=== PATIENT | male | born 1995 | race Caucasian/White ===

== ENCOUNTER 2018-04-05 04:07 | Emergency (ER) | payer BC, OTHER ==
[2018-04-05] MEDS ORDERED: IPRATROPIUM/ALBUTEROL 3 ML DEYVIAL ONE (04:14)
--- NOTE | 2018-04-05 04:20 | EDPHY ---
H & P Stated Complaint: ASTHMA EXAC Time Seen by Provider: 04/05/18 04:14 HPI/ROS: Chief Complaint: Asthma exacerbation HPI: 23-year-old male with a history of asthma has been off of his Symbicort and albuterol for the last 2 weeks since his prescriptions ran out. He has been having increasing wheezing and shortness of breath. No recent illness. No fevers or chills. Mild dry nonproductive cough. No nausea or vomiting. No chest pain. ROS: 10 systems were reviewed and were negative except those elements noted in the HPI. PMH: Asthma Social History: No smoking, no alcohol, no recreational drug use Family History: non-contributory Physical Exam: Gen: Awake, Alert, No Distress HEENT: Nose: no rhinorrhea Eyes: PERRLA, EOMI Mouth: Moist mucosa Neck: Supple, no JVD Chest: nontender, diffuse expiratory wheeze, no focal rales or rhonchi Heart: S1, S2 normal, no murmur Abd: Soft, non-tender, no guarding Back: no CVA tenderness, no midline tenderness Ext: no edema, non-tender Skin: no rash Neuro: CN II-XII intact, Sensation grossly intact, Strength 5/5 in bilateral upper and lower extremities - Personal History Current Tetanus Diphtheria and Acellular Pertussis (TDAP): Yes - Medical/Surgical History Hx Asthma: Yes Hx Chronic Respiratory Disease: No Hx Diabetes: No Hx Cardiac Disease: No Hx Renal Disease: No Hx Cirrhosis: No Hx Alcoholism: No Hx HIV/AIDS: No Hx Splenectomy or Spleen Trauma: No Other PMH: ASTHMA, WRIST SX - Social History Smoking Status: Never smoked Constitutional: Initial Vital Signs Temperature (C) 36.6 C 04/05/18 04:09 Heart Rate 93 04/05/18 04:09 Respiratory Rate 24 H 04/05/18 04:09 Blood Pressure 156/94 H 04/05/18 04:09 O2 Sat (%) 98 04/05/18 04:09 O2 Delivery Mode Room Air Allergies/Adverse Reactions: No Known Allergies Allergy (Unverified 04/05/18 04:11) Home Medications: Medication Instructions Recorded Albuterol [Proventil Inhaler HFA 1 - 2 puffs IH Q4H PRN #1 mdi 04/05/18 (*)] Budesonide/Formoterol 160/4.5 2 puffs IH BID #1 mdi 04/05/18 [Symbicort 160-4.5 Mcg Inh (*)] Medical Decision Making ED Course/Re-evaluation: The patient is improved after 1 DuoNeb. Lungs are clear. Will discharge with his usual medication prescriptions and a inhaler spacer. - Data Points Medications Given: Discontinued Medications Albuterol/Ipratropium (Duoneb) 3 ml IH EDNOW ONE Stop: 04/05/18 04:22 Last Admin: 04/05/18 04:22 Dose: 3 ml Departure - Departure Disposition: Home, Routine, Self-Care Clinical Impression: Exacerbation of asthma Condition: Good Instructions: Asthma (ED) Additional Instructions: Follow up with primary care physician in 2-3 days for further evaluation. Return to the emergency department for increasing shortness of breath, cough, fevers, chills, or any other concerns. Referrals: Deborah Young MD [Medical Doctor] - As per Instructions Prescriptions: Albuterol [Proventil Inhaler HFA (*)] 1 - 2 puffs IH Q4H PRN #1 mdi PRN Reason: Wheezing Budesonide/Formoterol 160/4.5 [Symbicort 160-4.5 Mcg Inh (*)] 2 puffs IH BID #1 mdi
[2018-04-05] MEDS ORDERED: IPRATROPIUM/ALBUTEROL 3 ML DEYVIAL IH ONE (04:21)
[2018-04-05 05:06] VITALS: BP 118/71
== END 2018-04-05 05:04 | disposition home or self-care (01) ==
DX: J45.901 Unspecified asthma with (acute) exacerbation (principal)